=== PATIENT | female | born 1980 | race Two or more races ===

== ENCOUNTER 2020-11-18 03:58 | Emergency (ER) | payer OTHER ==
[~2020-11-18] VITALS: Ht 162.6 cm; Wt 115.7 kg
[2020-11-18 04:09] VITALS: BP 133/89
== END 2020-11-18 05:30 | disposition left against medical advice (07) ==
LOC: ER 04:03
DX: R21 Rash and other nonspecific skin eruption (principal); Z53.21 Procedure and treatment not carried out due to patient leaving prior to being seen by health care provider